=== PATIENT | female | born 1965 | race Caucasian/White ===

== ENCOUNTER 2016-10-02 14:54 | Observation (INO) | payer OTHER ==
[2016-10-02] MEDS ORDERED: hydrALAZINE 20 MG/ML SDV IVPUSH ONE ×2 (15:04→15:41)
[2016-10-02] MEDS ORDERED: Ondansetron 4 MG/2 ML SDV IVPUSH ONE (15:07)
[2016-10-02] MEDS: Sodium Chloride 0.9% 10 ML Syringe FLUSH PRN ×2 (15:11→15:55)
[2016-10-02 15:39] LABS: CHLORIDE,CL 106 mmol/L (98-107); SODIUM,NA 140 mmol/L (136-145)
[2016-10-02] MEDS ORDERED: Lisinopril 10 MG Tab PO ONE (16:18)
[2016-10-02] MEDS ORDERED: Ketorolac 30 MG/ML SDV IVPUSH ONE (16:46)
[2016-10-02] MEDS ORDERED: Metoclopramide 10 MG/2 ML SDV IVPUSH ONE (16:46)
[2016-10-02] MEDS: Nicotine 14 MG/24 Hr Patch TRDERM SCH (18:05)
[2016-10-02] MEDS: Aspirin 81 MG Tab.EC PO SCH (18:06)
[2016-10-02] MEDS: Labetalol 100 MG Tab PO SCH (19:55)
[2016-10-02] MEDS ORDERED: Ketorolac 30 MG/ML SDV IVPUSH PRN (22:33)
[2016-10-02] MEDS ORDERED: Metoclopramide 10 MG/2 ML SDV IVPUSH PRN (22:34)
[2016-10-03] MEDS: Sodium Chloride 0.9% 10 ML Syringe FLUSH PRN (02:14)
[2016-10-03] MEDS ORDERED: Pantoprazole 40 MG Tab.CR PO SCH (07:00)
[2016-10-03] MEDS: Aspirin 81 MG Tab.EC PO SCH (07:47)
[2016-10-03] MEDS: Nicotine 14 MG/24 Hr Patch TRDERM SCH (07:47)
[2016-10-03] MEDS: Labetalol 100 MG Tab PO SCH ×2 (07:47→11:46)
--- NOTE | 2016-10-03 08:27 | ER ---
Date of Service: 10/02/2016 SUBJECTIVE: Mora presents to the emergency room from the clinic. She initially presented to the clinic with complaints of headache and was found to have severely elevated blood pressure of greater than 220/110. She subsequently was brought to the ER for evaluation and treatment. The patient states that she has a history of severe hypertension and states that she is currently taking labetalol 400 mg three times a day. She previously had been on lisinopril and amlodipine as well, but apparently this was discontinued by her provider in [place], [place]. The patient subsequently moved to [place] and is currently working at the [employer]. She states that she has been experiencing the headache for several days. The patient states that she also has a history of previous embolic CVA which was thought to be brought on by severe hypertension. She was cared for at [facility] in [place] for this. PAST MEDICAL HISTORY: 1. Hypertension. 2. Tobacco abuse disorder. 3. GERD. 4. Ischemic cerebrovascular disease of unknown etiology. MEDICATIONS: 1. Protonix 40 mg at breakfast. 2. Labetalol 400 mg p.o. t.i.d. 3. Aspirin 81 mg daily. ALLERGIES: Nickel and tramadol. REVIEW OF SYSTEMS: General: No fever or chills. HEENT: Please see history of present illness. Denies any blurred vision. Respiratory: No shortness of breath. Cardiac: Denies any substernal chest pain. No jaw, arm, neck, or back pain. Gastrointestinal: No nausea, vomiting, or diarrhea. No melena, hematochezia, or hematemesis. Genitourinary: Denies any dysuria. Musculoskeletal: No myalgias or arthralgias. Neurologic: Complains of severe headache, denies any difficulties with speech or ambulation. No blurred vision. PHYSICAL EXAMINATION: General: The patient is a 51-year-old female patient, who is in no acute distress. Vital Signs: Initial blood pressure is 232/109, O2 saturation 97%. She is afebrile. Heart rate is 69. Respiratory rate is 22. Skin: Warm, pink, and dry. HEENT: Head is normocephalic, atraumatic. Eyes, PERRLA. Extraocular movements are intact. There is no funduscopic papilledema noted. Ears, TMs are clear. Mouth, oral mucosa is moist. Lungs: Clear to auscultation. Heart: Regular rate and rhythm. Abdomen: Soft and nontender. There is no hepatosplenomegaly noted. There are no masses noted. Musculoskeletal: No peripheral edema. Neurologic: The patient is alert, oriented, and answers all questions appropriately. Her speech is fluent. Her gait is within normal limits. She has 5/5 strength in both her upper and lower extremities. Her NIH stroke scale is 0. She has no pronator drift. Romberg is negative. DIAGNOSTIC DATA: CT scan of the patient's brain was obtained. She has evidence of a chronic lacunar infarct which is chronic in nature. Again we will obtain her medical records from [facility] in [place] to verify this better. A 12-lead EKG is obtained showing a sinus rhythm without any acute ST or T wave abnormalities. She did have evidence of some left ventricular hypertrophy secondary to her chronic hypertension. LABORATORY DATA: CBC was obtained, it was all noted to be within normal limits. PT was 9.3, INR was 0.9. Chemistry: Sodium is 140, potassium is 3.8, chloride is 106, bicarb is 25, BUN is 7, creatinine is 1.0, GFR is 58, glucose is 90, calcium is 8.3, corrected calcium is 8.78. Total bilirubin is 0.3, AST is 18, ALT is 20, alkaline phosphatase is 108. Troponin is less than 0.017. C-reactive protein is 1.2. Total protein is 6.8. Albumin is 3.4. EMERGENCY ROOM COURSE: IV access was established. She was given hydralazine in two 10 mg doses and was also given lisinopril 10 mg p.o. The patient's vitals were monitored closely and at time of admission, her blood pressure was down to 160/86. She stated that her headache had improved somewhat. She was also given Zofran 4 mg IV for some nausea as well as Toradol 30 mg IV and Reglan 10 mg IV on admission. She states that her nausea is well controlled, but she is likely receiving her Reglan and Toradol at this time. She had some pain. Decision was made to admit the patient on observation status due to the fact that she has a history of prior cerebrovascular disease and desire to slowly lower her blood pressure to decrease cerebral ischemia. ASSESSMENT: 1. Hypertensive emergency. 2. Headache secondary to hypertensive emergency. PLAN: The decision was made to admit the patient on observation status. We will again start her on lisinopril 10 mg orally at this time. We will re- evaluate her vitals every 1 to 2 hours to see how her blood pressure is responding and we will adjust the medication or add other agents as needed. We will continue with her labetalol at its current dose. The patient states that she wishes to be resuscitated in the event of a cardiopulmonary arrest, so she will be made a code level 1. She also does wish to be intubated. We will repeat troponin in 6 hours. All the questions were answered. MWK: 10/02/2016 17:17:12 MODL: 10/02/2016 18:15:37 /[id number]
[2016-10-03] MEDS ORDERED: Lisinopril 10 MG Tab PO ONE (10:59)
[2016-10-03 11:31] VITALS: BP 188/96
[2016-10-03] MEDS ORDERED: amLODIPine 10 MG Tab PO ONE (12:30)
--- NOTE | 2016-10-04 07:44 | ER ---
Date of Service: 10/02/2016 ADDENDUM: This ER note may be used as the patient's admission H and P. MWK: 10/04/2016 01:11:44 MODL: 10/04/2016 01:39:45 /[id number]
--- NOTE | 2016-10-16 07:51 | DISCH ---
ADMITTING AND DISCHARGE DIAGNOSIS: Hypertensive emergency. SUBJECTIVE: The patient was admitted to the observation status following her presentation to the ER with a blood pressure of 220/110. The patient was currently taking labetalol 400 mg, 3 times daily for her hypertension. She previously had also been on lisinopril and amlodipine as well. She since has stopped taking that medication and when she presented to the emergency room, was extremely hypertensive. Her hypertension was treated with hydralazine and the patient was started on lisinopril in addition to her labetalol. PHYSICAL EXAMINATION: General: This is a 51-year-old female patient, in no acute distress. Vital Signs: Blood pressure is 154/83, heart rate is 57, temperature is 36.8, respiratory rate 16, and O2 saturation 98%. Skin: Warm, pink, and dry. HEENT. Head is normocephalic, atraumatic. Eyes are PERRLA. Extraocular movements are intact. Mouth, oral mucosa is moist. Lungs: Clear to auscultation. Heart: Regular rate and rhythm. Abdomen: Soft, nontender. There is no hepatosplenomegaly or masses noted. Extremities: Without edema. LABORATORY DATA: WBC 6.6, hemoglobin is 13.2, and platelets are 224. Coags: PT is 9.3, INR is 0.9. Chemistry: Sodium is 140, potassium is 3.8, chloride is 106, bicarb is 25, BUN is 7, creatinine is 1.0. GFR is 58. Glucose is 90, calcium is 8.3, corrected calcium is 8.7. Total bilirubin is 0.3, AST is 18, ALT is 20, alkaline phosphatase is 108. Troponin is less than 0.017. C- reactive protein is 1.2. Total bilirubin is 6.8. HOSPITAL COURSE: The patient was started on lisinopril and amlodipine in addition to her labetalol. Her blood pressure was improving nicely. She was complaining of a headache associated with this as well. She was given doses of Toradol and Reglan for her headache. The patient's blood pressure was increasing slightly at time of discharge. The patient was requesting to be discharged. She was informed by nursing that they wanted to contact me regarding her increase in her blood pressure, but the patient left before being evaluated. DISCHARGE CONDITION: Fair. DISCHARGE MEDICATIONS: Continue labetalol at 400 mg p.o. t.i.d., in addition we will start lisinopril 10 mg p.o. daily and amlodipine 10 mg daily. FOLLOWUP: Follow up in 1 week. Advised her to obtain a primary care provider for followup. MWK: 10/16/2016 06:43:53 MODL: 10/16/2016 07:27:46 /[id number]
== END 2016-10-03 13:30 | disposition home or self-care (01) ==
LOC: VM.ED 14:54 → MERGE 16:30 → VM.MS 16:30
PROVIDERS: ADMIT Physician Assistant; ATTEND Physician Assistant
DX: I16.1 Hypertensive emergency (principal); K21.9 Gastro-esophageal reflux disease without esophagitis; I67.82 Cerebral ischemia; Z79.82 Long term (current) use of aspirin; Z79.899 Other long term (current) drug therapy; Z88.8 Allergy status to other drugs, medicaments and biological substances; F17.210 Nicotine dependence, cigarettes, uncomplicated; Z90.49 Acquired absence of other specified parts of digestive tract; Z96.649 Presence of unspecified artificial hip joint; Z98.890 Other specified postprocedural states
CPT/HCPCS: 36415; 70450; 71020; 80053; 84484; 85025; 85610; 86140; 93005; 96374; 96375; 96376; 99285; A9270; G0378; J0360; J1885; J2405; J2765; J7050

== ENCOUNTER 2019-03-24 08:04 | Emergency (ER) | payer BC ==
--- NOTE | 2019-03-24 08:53 | CR ---
[id number] RAD/RAD Wrist Left 3V Min EXAM: 3 VIEWS LEFT WRIST. INDICATION: SLIPPED ON ICE, LEFT WRIST PAIN. COMPARISON: None. DISCUSSION: Impacted slightly angulated fracture involving the distal left radius. There is associated soft tissue edema. Suggestion of nondisplaced left ulnar styloid fracture. Mild degenerative changes of the 1st carpometacarpal joint. Additionally there are mild degenerative changes seen throughout the interphalangeal joints. IMPRESSION: 1. Acute impacted fracture of the distal left radius with suggestion of nondisplaced left ulnar styloid fracture. Dandy Cantor DO 03/24/19 0853 Thank you for allowing us to participate in the care of your patient.
[2019-03-24 09:00] VITALS: BP 112/78; PULSE 62
--- NOTE | 2019-03-24 10:05 | EDM.PDOC ---
ED HPI GENERAL MEDICAL PROBLEM - General Chief Complaint: Upper Extremity Injury/Pain Stated Complaint: FELL OUTSIDE ON WRIST Time Seen by Provider: 03/24/19 08:20 Source of Information: Reports: Patient History Limitations: Reports: No Limitations - History of Present Illness INITIAL COMMENTS - FREE TEXT/NARRATIVE: Pt. states that she was walking into work at the [employer] when she slipped, injuring her L wrist. She complains to pain to the anterior and posterior aspects of the wrist. She complained of pain to the upper forearm/ upper arm area initially but states that this is resolving. Denies striking her head. No neck pain post fall. She states that the discomfort now is isolated to her L wrist. Denies any numbness/tingling in distal portion of the extremity. She states that she slipped and experienced a mechanical fall; denies any chest pain, shortness of breath, or lightheadedness prior to the incident. Onset: Today Onset Date: 03/24/19 Location: Reports: Upper Extremity, Left Quality: Reports: Ache, Throbbing Severity: Severe Left Wrist Pain Score (Numeric/FACES): 10 - Related Data Allergies Allergy/AdvReac Type Severity Reaction Status Date / Time nickel Allergy Cannot Verified 03/24/19 09:08 Remember tramadol Allergy Other Verified 03/24/19 09:08 Home Meds: Home Meds Aspirin 81 mg PO DAILY 10/02/16 [History] Pantoprazole [ProTONIX] 40 mg PO ACBREAKFAST 10/02/16 [History] NIFEdipine [Nifedipine ER] 90 mg DAILY 03/24/19 [History] carvediloL [Carvedilol] 25 mg BID 03/24/19 [History] hydrOXYzine HCL [hydrOXYzine] 50 mg ASDIRECTED PRN 03/24/19 [History] hydroCHLOROthiazide [Hydrochlorothiazide] 25 mg DAILY 03/24/19 [History] lisinopriL [Lisinopril] 40 mg DAILY 03/24/19 [History] Past Medical History Cardiovascular History: Reports: Hypertension Gastrointestinal History: Reports: GERD Musculoskeletal History: Reports: Other (See Below) Neurological History: Reports: CVA Psychiatric History: Reports: Anxiety, Depression - Past Surgical History GI Surgical History: Reports: Appendectomy Female Surgical History: Reports: Other (See Below) Other Female Surgeries/Procedures: cysts removed Musculoskeletal Surgical History: Reports: Hip Replacement, Other (See Below) Other Musculoskeletal Surgeries/Procedures:: shoulder surgery Social & Family History - Family History Family Medical History: Noncontributory - Tobacco Use Smoking Status *Q: Current Every Day Smoker Years of Tobacco use: 40 Packs/Tins Daily: 0.1 - Caffeine Use Caffeine Use: Reports: Soda - Recreational Drug Use Recreational Drug Use: No Review of Systems - Review of Systems Review Of Systems: Comprehensive ROS is negative, except as noted in HPI. Constitutional: Reports: No Symptoms ED EXAM, GENERAL - Physical Exam Exam: See Below Exam Limited By: No Limitations General Appearance: Alert, No Apparent Distress Extremities: Joint Swelling, Arm Pain, Limited Range of Motion Neurological: Alert, Oriented, CN II-XII Intact, Normal Cognition, Normal Gait, Normal Reflexes, No Motor/Sensory Deficits ED TRAUMA EXTREMITY PROCEDURES - Splinting Left Upper Extremity Pre-Procedure NV Status: Normal Post-Procedure NV Status: Normal Splint Material: Fiberglass Splint Design: Sugar Tong, Sling Applied & Form Fitted By: Provider Provider Post-Splint Application NV Check: NV Status Normal, Good Position Complications: No Course - Vital Signs Last Recorded V/S: Last Vital Signs Temp 36.3 C 03/24/19 08:15 Pulse 62 03/24/19 08:15 Resp 16 03/24/19 08:15 BP 112/78 03/24/19 08:15 Pulse Ox 99 03/24/19 08:15 - Radiology Interpretation Free Text/Narrative:: 3 view L wrist obtained, positive for distal radius/ulnar styloid fracture. Departure - Departure Time of Disposition: 10:05 Disposition: Home, Self-Care 01 Condition: Good Clinical Impression: Radius and ulna distal fracture - Discharge Information Instructions: Acetaminophen; Hydrocodone tablets or capsules, Radial Fracture, Cast or Splint Care, Adult, [id number] Referrals: Elodia Osborne PA-C [Primary Care Provider] - Forms: ED Department Discharge Additional Instructions: Home to rest. Please excuse from work for 10 days, possibly longer depending on what hand surgeon decides next week. [place] 5/325mg 1 every 4-6 hours as needed for pain Keep splint on all the time. Appointment with hand surgery is 2:30PM on , [facility] Sepsis Event Note - Evaluation Sepsis Screening Result: No Definite Risk - Focused Exam Vital Signs: Vital Signs Temp Pulse Resp BP Pulse Ox 03/24/19 08:15 36.3 C 62 16 112/78 99 Date Exam was Performed: 03/24/19 Time Exam was Performed: 10:00 - Assessment/Plan Plan: Home to rest. Please excuse from work for 10 days, possibly longer depending on what hand surgeon decides next week. [place] 5/325mg 1 every 4-6 hours as needed for pain Keep splint on all the time. Appointment with hand surgery is 2:30PM on , at [facility] in [place] ([address] )
== END 2019-03-24 09:55 | disposition home or self-care (01) ==
LOC: VM.ED 08:04
DX: S52.502A Unspecified fracture of the lower end of left radius, initial encounter for closed fracture (principal); S52.612A Displaced fracture of left ulna styloid process, initial encounter for closed fracture; I10 Essential (primary) hypertension; K21.9 Gastro-esophageal reflux disease without esophagitis; F17.210 Nicotine dependence, cigarettes, uncomplicated; Z86.73 Personal history of transient ischemic attack (TIA), and cerebral infarction without residual deficits; Z79.82 Long term (current) use of aspirin; Z79.899 Other long term (current) drug therapy; Z90.49 Acquired absence of other specified parts of digestive tract; W01.0XXA Fall on same level from slipping, tripping and stumbling without subsequent striking against object, initial encounter
CPT/HCPCS: 29125; 73110-LT; 99283-25

== ENCOUNTER 2021-09-04 15:28 | Observation (INO) | payer OTHER ==
[2021-09-04] MEDS ORDERED: Diltiazem 50 MG/10 ML SDV IVPUSH ONE (15:43)
[2021-09-04 16:13] LABS: CHLORIDE,CL 101 mmol/L (98-107); SODIUM,NA 138 mmol/L (136-145)
[2021-09-04 16:14] LABS: ANION GAP 21.3 mmol/L (5-15); ESTIMATED GFR 35 mL/min (>=60)
[2021-09-04] MEDS ORDERED: Iopamidol 755 Mg/ML 100 ML Bottle IVPUSH ONE (16:51)
[2021-09-04] MEDS ORDERED: Magnesium Sulfate/Water 2 GM in Premix Bag 1 BAG IV ONE (18:57)
[2021-09-04] MEDS ORDERED: Albuterol 0.083% 2.5 MG/3 ML Neb Soln NEB PRN (19:48)
[2021-09-04] MEDS ORDERED: traZODone 50 MG Tab PO PRN (19:48)
[2021-09-04] MEDS ORDERED: HYDROXYZINE HCL 50 MG PO PRN (19:48)
[2021-09-04] MEDS ORDERED: Diltiazem 50 MG/10 ML SDV IVPUSH PRN (19:52)
[2021-09-04] MEDS ORDERED: Diltiazem IR 60 MG Tab PO SCH (21:00)
[2021-09-04] MEDS ORDERED: Rosuvastatin 20 MG Tab PO SCH (21:00)
[2021-09-04] MEDS: Apixaban 2.5 MG Tab PO SCH (22:00)
[2021-09-04] MEDS: Potassium Chloride 10 MEQ Tab.ER PO SCH (22:00)
[2021-09-04] MEDS: Magnesium Oxide 400 MG Tab PO SCH (22:00)
[2021-09-04] MEDS: Carvedilol 25 MG Tab PO SCH (22:00)
[2021-09-05 06:50] LABS: ANION GAP 17.7 mmol/L (5-15)
[2021-09-05] MEDS ORDERED: Pantoprazole 40 MG Tab.CR PO SCH (07:00)
[2021-09-05] MEDS ORDERED: hydrOXYzine HCl 25 MG Tab PO PRN (08:15)
[2021-09-05] MEDS: Magnesium Oxide 400 MG Tab PO SCH (08:52)
[2021-09-05] MEDS: Apixaban 2.5 MG Tab PO SCH (08:53)
[2021-09-05] MEDS: Potassium Chloride 10 MEQ Tab.ER PO SCH (08:53)
[2021-09-05] MEDS: Carvedilol 25 MG Tab PO SCH (08:53)
[2021-09-05] MEDS ORDERED: NIFEdipine 30 MG Tab.ER PO SCH (09:00)
[2021-09-05] MEDS ORDERED: Non-Formulary Medication 1 Each (Lisinopril [Lisinopril] 40 MG Tablet) PO SCH (09:00)
[2021-09-05] MEDS ORDERED: Tiotropium Bromide 4 GM Inhalation Spray (2.5mcg/1 dose; 10 doses) INH SCH (09:00)
[2021-09-05] MEDS ORDERED: Calcitriol 0.25 MCG Cap PO SCH (09:00)
[2021-09-05 13:33] VITALS: BP 99/57; PULSE 73
== END 2021-09-05 14:54 | disposition home or self-care (01) ==
LOC: VM.ED 15:28 → VM.MS 19:00
PROVIDERS: ADMIT Internal Medicine; ATTEND Internal Medicine
DX: I48.91 Unspecified atrial fibrillation (principal); J44.9 Chronic obstructive pulmonary disease, unspecified; F17.210 Nicotine dependence, cigarettes, uncomplicated; F41.9 Anxiety disorder, unspecified; F32.A Depression, unspecified; I12.9 Hypertensive chronic kidney disease with stage 1 through stage 4 chronic kidney disease, or unspecified chronic kidney disease; N18.30 Chronic kidney disease, stage 3 unspecified; E83.42 Hypomagnesemia; E87.6 Hypokalemia; K21.9 Gastro-esophageal reflux disease without esophagitis; Z20.822 Contact with and (suspected) exposure to COVID-19; Z79.899 Other long term (current) drug therapy; Z88.8 Allergy status to other drugs, medicaments and biological substances; Z79.82 Long term (current) use of aspirin; Z82.3 Family history of stroke; Z98.890 Other specified postprocedural states
CPT/HCPCS: 36415; 71045; 71275; 80048; 80053; 83735; 83880; 84443; 84484; 85025; 85379; 85610; 93005; 93010; 96365; 96375; 99284; 99285-25; A9270-GY; G0378; J3475; J3490; Q9967; U0002

== ENCOUNTER 2022-09-23 11:01 | Emergency (ER) | payer OTHER ==
[2022-09-23 11:33] LABS: BASOPHILS PERCENT AUTO 0.1 % (0.2-1.2); EOSINOPHILS ABSOLUTE AUTO 0.3 x10^3/uL (0.0-0.5); EOSINOPHILS PERCENT AUTO 3.6 % (0.0-4.0); HEMATOCRIT 42.9 % (33.0-47.0); IMMATURE GRAN ABSOLUTE AUTO 0.01 x10^3/uL (0.00-0.07); MEAN CORPUSCULAR HEMOGLOBIN 30.9 pg (26.0-32.0); MEAN CORPUSCULAR VOLUME 88.3 fL (78.0-93.0); MONOCYTES ABSOLUTE AUTO 0.7 x10^3/uL (0.0-0.8); NEUTROPHILS ABSOLUTE AUTO 4.5 x10^3/uL (1.8-7.7); NEUTROPHILS PERCENT AUTO 60.2 % (50.0-80.0); PLATELET COUNT,PLT 249 x10^3/uL (130-400); RED BLOOD CELL COUNT 4.86 x10^6/uL (4.00-5.50); WHITE BLOOD CELL COUNT,WBC 7.5 x10^3/uL (4.0-10.0)
[2022-09-23 12:00] LABS: A/G RATIO 0.88; ALANINE AMINOTRANSFERASE,ALT 16 U/L (14-59); ALBUMIN 3.8 g/dL (3.4-5.0); ALKALINE PHOSPHATASE 106 U/L (46-116); ASPARTATE AMNIOTRANSFERASE,AST 17 U/L (15-37); BILIRUBIN TOTAL 0.4 mg/dL (0.2-1.0); BLOOD UREA NITROGEN,BUN 16 mg/dL (7-18); C-REACTIVE PROTEIN 0.73 mg/dL (<=0.30); CALCIUM 8.6 mg/dL (8.5-10.1); CARBON DIOXIDE,CO2 23 mmol/L (21-32); CHLORIDE,CL 107 mmol/L (98-107); CREATINE KINASE,CK 70 U/L (26-192); CREATININE 1.5 mg/dL (0.55-1.02); GLUCOSE RANDOM 90 mg/dL (70-99); POTASSIUM,K 4.4 mmol/L (3.5-5.1); PROTEIN TOTAL,TP 8.1 g/dL (6.4-8.2); SODIUM,NA 142 mmol/L (136-145)
[2022-09-23 12:04] LABS: ANION GAP 16.4 mmol/L (5-15); ESTIMATED GFR 40 mL/min (>=60)
[2022-09-23 13:03] VITALS: BP 134/78; PULSE 89
== END 2022-09-23 12:47 | disposition home or self-care (01) ==
LOC: VM.ED 11:01
DX: I48.91 Unspecified atrial fibrillation (principal); I10 Essential (primary) hypertension; E78.00 Pure hypercholesterolemia, unspecified; K21.9 Gastro-esophageal reflux disease without esophagitis; Z87.891 Personal history of nicotine dependence; Z91.09 Other allergy status, other than to drugs and biological substances; Z88.6 Allergy status to analgesic agent; Z79.899 Other long term (current) drug therapy
CPT/HCPCS: 36415; 71046; 80053; 82550; 84484; 85025; 86140; 93005; 99285

== ENCOUNTER 2022-12-26 12:36 | Inpatient (IN) | payer OTHER ==
[2022-12-26] MEDS ORDERED: Acetaminophen 325 MG Tab PO PRN (12:55)
[2022-12-26] MEDS ORDERED: Polyethylene Glycol 3350 Powder 17 GM Packet PO PRN (12:55)
[2022-12-26] MEDS ORDERED: Ondansetron 4 MG Tab.DIS PO PRN (12:55)
[2022-12-26] MEDS ORDERED: Albuterol 0.083% 2.5 MG/3 ML Neb Soln INH PRN (13:00)
[2022-12-26] MEDS ORDERED: traZODone 50 MG Tab PO PRN (13:00)
[2022-12-26] MEDS ORDERED: Albuterol HFA 18 Gm Inhaler INH PRN (13:00)
[2022-12-26] MEDS ORDERED: hydrOXYzine HCl 25 MG Tab PO PRN (13:00)
[2022-12-26] MEDS: cefTRIAXone 1 GM Vial IVPUSH SCH (14:44)
[2022-12-26] MEDS: Potassium Chloride Riders 20 MEQ in Premix Bag 1 BAG IV SCH ×2 (14:44→17:33)
[2022-12-26] MEDS ORDERED: Magnesium Sulfate/Water 2 GM in Premix Bag 1 BAG IV ONE (15:30)
[2022-12-26] MEDS ORDERED: Sodium Chloride 0.9% 1,000 ML IV SCH (16:30)
[2022-12-26 17:30] LABS: CORONAVIRUS COVID-19 NAA NEGATIVE (NEGATIVE); INFLUENZA A NAA NEGATIVE (NEGATIVE); INFLUENZA B NAA NEGATIVE (NEGATIVE)
[2022-12-26] MEDS: Potassium Chloride 10 MEQ Tab.ER PO SCH (18:14)
[2022-12-26] MEDS ORDERED: Rosuvastatin 20 MG Tab PO SCH (21:00)
[2022-12-26] MEDS: Apixaban 2.5 MG Tab PO SCH (21:02)
[2022-12-26] MEDS: Carvedilol 25 MG Tab PO SCH (21:04)
[2022-12-26] MEDS: Ipratropium 0.02% 0.5 MG/2.5 ML Neb Soln NEB SCH (22:00)
[2022-12-27] MEDS: Ipratropium 0.02% 0.5 MG/2.5 ML Neb Soln NEB SCH (02:00)
[2022-12-27 06:41] LABS: BASOPHILS PERCENT AUTO 0.1 % (0.2-1.2); EOSINOPHILS ABSOLUTE AUTO 0.3 x10^3/uL (0.0-0.5); EOSINOPHILS PERCENT AUTO 2.3 % (0.0-4.0); HEMATOCRIT 40.3 % (33.0-47.0); HEMOGLOBIN 13.6 g/dL (12.0-16.0); IMMATURE GRAN ABSOLUTE AUTO 0.05 x10^3/uL (0.00-0.07); LYMPHOCYTES ABSOLUTE AUTO 2.4 x10^3/uL (1.0-4.8); LYMPHOCYTES PERCENT AUTO 21.9 % (25.0-50.0); MEAN CORPUSCULAR HEMOGLOBIN 30.5 pg (26.0-32.0); MEAN CORPUSCULAR HGB CONC 33.7 g/dL (32.0-36.0); MEAN CORPUSCULAR VOLUME 90.4 fL (78.0-93.0); MONOCYTES ABSOLUTE AUTO 1.1 x10^3/uL (0.0-0.8); NEUTROPHILS PERCENT AUTO 65.2 % (50.0-80.0); PLATELET COUNT,PLT 251 x10^3/uL (130-400); RED BLOOD CELL COUNT 4.46 x10^6/uL (4.00-5.50); WHITE BLOOD CELL COUNT,WBC 10.8 x10^3/uL (4.0-10.0)
[2022-12-27] MEDS ORDERED: Pantoprazole 40 MG Tab.CR PO SCH (07:00)
[2022-12-27 07:02] LABS: A/G RATIO 0.82; ALBUMIN 2.8 g/dL (3.4-5.0); ANION GAP 15.5 mmol/L (5-15); BILIRUBIN TOTAL 0.3 mg/dL (0.2-1.0); CALCIUM 7.8 mg/dL (8.5-10.1); CREATININE 1.2 mg/dL (0.55-1.02); EST CRCL DRUG DOSING (CG) 47.25 mL/min; MAGNESIUM 1.8 mg/dL (1.8-2.4); POTASSIUM,K 3.5 mmol/L (3.5-5.1); PROTEIN TOTAL,TP 6.2 g/dL (6.4-8.2)
[2022-12-27] MEDS: Potassium Chloride 10 MEQ Tab.ER PO SCH (08:22)
[2022-12-27] MEDS: Apixaban 2.5 MG Tab PO SCH (08:24)
[2022-12-27] MEDS: Carvedilol 25 MG Tab PO SCH (08:25)
[2022-12-27] MEDS: cefTRIAXone 1 GM Vial IVPUSH SCH (08:26)
[2022-12-27] MEDS ORDERED: NIFEdipine 30 MG Tab.ER PO SCH (09:00)
[2022-12-27] MEDS ORDERED: Rosuvastatin 20 MG Tab PO SCH (09:00)
[2022-12-27] MEDS ORDERED: Calcitriol 0.25 MCG Cap PO SCH (09:00)
[2022-12-27 12:28] VITALS: BP 145/61; PULSE 74
== END 2022-12-27 12:15 | disposition home or self-care (01) | DRG 641 ==
LOC: VM.MS 12:53
PROVIDERS: ADMIT Physician Assistant; ATTEND Physician Assistant
DX: E87.6 Hypokalemia (principal); N30.00 Acute cystitis without hematuria; J43.9 Emphysema, unspecified; K21.9 Gastro-esophageal reflux disease without esophagitis; F32.A Depression, unspecified; E78.00 Pure hypercholesterolemia, unspecified; I48.0 Paroxysmal atrial fibrillation; N18.30 Chronic kidney disease, stage 3 unspecified; F51.01 Primary insomnia; I12.9 Hypertensive chronic kidney disease with stage 1 through stage 4 chronic kidney disease, or unspecified chronic kidney disease; F41.1 Generalized anxiety disorder; I71.40 Abdominal aortic aneurysm, without rupture, unspecified; E83.42 Hypomagnesemia; Z90.49 Acquired absence of other specified parts of digestive tract; Z88.8 Allergy status to other drugs, medicaments and biological substances; Z86.73 Personal history of transient ischemic attack (TIA), and cerebral infarction without residual deficits; Z11.52 Encounter for screening for COVID-19; Z79.01 Long term (current) use of anticoagulants; Z95.5 Presence of coronary angioplasty implant and graft; Z79.899 Other long term (current) drug therapy
CPT/HCPCS: 0240U; 36415; 71046; 80053; 83605; 83735; 85025; 93005; A9270-GY; J0696; J3475; J3480

== ENCOUNTER 2024-01-10 12:51 | Emergency (ER) | payer BC ==
[2024-01-10] MEDS: Diltiazem 50 MG/10 ML SDV IVPUSH ONE (13:34)
[2024-01-10 14:02] LABS: BASOPHILS PERCENT AUTO 0.2 % (0.2-1.2); EOSINOPHILS ABSOLUTE AUTO 0.1 x10^3/uL (0.0-0.5); HEMATOCRIT 43.6 % (33.0-47.0); HEMOGLOBIN 14.6 g/dL (12.0-16.0); IMMATURE GRAN ABSOLUTE AUTO 0.01 x10^3/uL (0.00-0.07); LYMPHOCYTES ABSOLUTE AUTO 2.2 x10^3/uL (1.0-4.8); LYMPHOCYTES PERCENT AUTO 33.8 % (25.0-50.0); MEAN CORPUSCULAR HEMOGLOBIN 31.3 pg (26.0-32.0); MEAN CORPUSCULAR HGB CONC 33.5 g/dL (32.0-36.0); MEAN CORPUSCULAR VOLUME 93.6 fL (78.0-93.0); MONOCYTES ABSOLUTE AUTO 0.5 x10^3/uL (0.0-0.8); MONOCYTES PERCENT AUTO 7.4 % (2.0-11.0); NEUTROPHILS ABSOLUTE AUTO 3.7 x10^3/uL (1.8-7.7); NEUTROPHILS PERCENT AUTO 56.4 % (50.0-80.0); PLATELET COUNT,PLT 255 x10^3/uL (130-400); RED BLOOD CELL COUNT 4.66 x10^6/uL (4.00-5.50); WHITE BLOOD CELL COUNT,WBC 6.5 x10^3/uL (4.0-10.0)
[2024-01-10 14:30] LABS: A/G RATIO 1.09; ALBUMIN 3.6 g/dL (3.4-5.0); BILIRUBIN TOTAL 0.5 mg/dL (0.2-1.0); CALCIUM 8.9 mg/dL (8.5-10.1); CREATININE 1.6 mg/dL (0.55-1.02); MAGNESIUM 1.8 mg/dL (1.8-2.4); POTASSIUM,K 4.1 mmol/L (3.5-5.1); PROTEIN TOTAL,TP 6.9 g/dL (6.4-8.2); TSH ULTRASENSITIVE 3.401 uIU/mL (0.358-3.74)
[2024-01-10 14:33] LABS: ANION GAP 19.1 mmol/L (5-15)
[2024-01-10 14:56] VITALS: BP 134/86; PULSE 57
== END 2024-01-10 14:55 | disposition home or self-care (01) ==
LOC: VM.ED 12:51
DX: I48.91 Unspecified atrial fibrillation (principal); E78.00 Pure hypercholesterolemia, unspecified; I10 Essential (primary) hypertension; J44.9 Chronic obstructive pulmonary disease, unspecified; K21.9 Gastro-esophageal reflux disease without esophagitis; Z95.1 Presence of aortocoronary bypass graft; Z86.73 Personal history of transient ischemic attack (TIA), and cerebral infarction without residual deficits; Z79.01 Long term (current) use of anticoagulants; Z79.899 Other long term (current) drug therapy; Z88.5 Allergy status to narcotic agent; Z91.048 Other nonmedicinal substance allergy status
CPT/HCPCS: 36415; 80053; 83735; 83880; 84443; 84484; 85025; 93005; 93010; 96374; 99284; 99285-25; J3490